=== PATIENT | female | born 1980 | race Caucasian/White ===

== ENCOUNTER 2016-09-24 12:25 | Emergency (ER) | payer MEDICAID ==
[2016-09-24 12:58] LABS: BASOPHILS 0.3 % (0.0-2.0); EOSINOPHILS 0.1 % (0.0-6.0); LYMPHOCYTES# 1.1 X 10^3uL (0.8-3.8); MONOCYTES# 0.2 X 10^3uL (0.2-1.0)
[2016-09-24] MEDS ORDERED: ONDANSETRON HCL 4 MG/2 ML VIAL ONE (12:58)
[2016-09-24 13:10] LABS: HEMATOCRIT 49.3 % (36.0-48.0); HEMOGLOBIN 17.4 g/dL (12.0-16.0); LYMPHOCYTES 11.6 % (20.0-40.0); MEAN CORPUS. HGB CONCENTRATION 35.2 g/dL (32.0-36.0); MEAN CORPUSCULAR HEMOGLOBIN 33.1 pg (29.0-35.0); MEAN PLATELET VOLUME 7.8 fL (7.4-10.4); MONOCYTES 2.2 % (2.0-10.0); NEUTROPHILS 85.8 % (54.0-75.0); NEUTROPHILS# 8.2 X 10^3uL (2.6-6.7); PLATELET COUNT 272 X 10^3uL (130-440); RED BLOOD COUNT 5.25 X 10^6uL (4.20-6.10); RED CELL DISTRIBUTION WIDTH 11.8 % (11.5-14.5); WHITE BLOOD COUNT 9.5 X 10^3uL (3.9-10.7)
[2016-09-24 13:14] LABS: ALKALINE PHOSPHATASE 83 U/L (38-126); ALT 51 U/L (9-52); AST 37 U/L (14-36); BILIRUBIN, DIRECT 0.3 mg/dL (0.0-0.4); BILIRUBIN, TOTAL 1.8 mg/dL (0.2-1.3); BLOOD UREA NITROGEN 14 mg/dL (7-17); CHLORIDE 102 mmol/L (98-107); EST GLOMERULAR FILTRATION RATE > 60 mL/min; GLUCOSE 132 mg/dL (70-100); LIPASE 76 U/L (23-300); POTASSIUM 3.7 mmol/L (3.5-5.1); SODIUM 146 mmol/L (137-145)
--- NOTE | 2016-09-24 14:42 | ER NURSING DOCUMENTATION ---
Nurse's Notes [facility] Name:Alaina Lawson Age:36 yrs Sex:Female :1980 Arrival Date:09/24/2016 Time:12:25 Bed4 Private MD:Brian Segura Diagnosis:Vomiting - Dehydration;Diarrhea;Abdominal Pain, Epigastric Presentation: 09/24 12:29 Presenting complaint: Patient states: Vomiting and nausea x 1.5 days. Transition of cb care: Home. Notified ED Physician of Dr. Aguilar notified. 12:29 Method Of Arrival: Private Vehicle cb 12:29 Acuity: TEVIN 3 cb Triage Assessment: 12:34 General: Appears distressed, well groomed, Behavior is cooperative. Pain: Complains of cb pain in xyphoid area Pain radiates to right upper quadrant and left upper quadrant Pain currently is 7 out of 10 on a pain scale. Quality of pain is described as sharp, Pain began 2-3 days ago. EENT: Denies nasal congestion, nasal discharge. Neuro: Level of Consciousness is awake, alert, Oriented to person, place, time, event. Cardiovascular: Pulses are 2+ in right radial artery. Respiratory: Airway is patent Trachea midline Respiratory effort is even, unlabored, Respiratory pattern is regular, symmetrical. GI: Reports intolerance of fluids, intolerance of food, x 1.5 days. : Reports urine brown color. Derm: Denies rashes, bites, non healing wounds. Musculoskeletal: Reports chronic back pain. Historical: - Allergies: No known drug Allergies; - Home Meds: 1. Promethazine Oral 2. Zofran Oral 3. morphine 30 mg oral CERP 1 cap 2 times per day 4. [place] 10-325 mg oral tab 1 tab BID as needed for pain for Pain 5. Valium 10 mg oral tab 1 tab one a day for Muscle Spasm 6. trazodone 100 mg oral tab hs - PMHx: chronic pain of back ; - PSHx: Appendectomy; c section x 2 ; TUBAL LIGATION; bunionectomey ; - Tetanus: < 10 years. - Ebola Screening: : Patient negative for fever greater than or equal to 101.5 degrees Fahrenheit, and additional compatible Ebola Virus Disease symptoms. Patient denies exposure to infectious person. Patient denies travel to an Ebola-affected area in the 21 days before illness onset. No symptoms or risks identified at this time. . - Immunization history: Flu Vaccine None. - Social history: Smoking status: Patient states former smoker of tobacco. Screenin:46 Infectious Disease Risk None. Abuse screen: Denies threats or abuse. Denies injuries cb from another. Nutritional screening: No deficits noted. Assessment: 12:45 See Triage Assessment done by same RN. cb Vital Signs: 12:32 BP 139 / 85; Pulse 68; Resp 22; Temp 98.1; Pulse Ox 94% on R/A; Weight 63.5 kg; Height cb 5 ft. 7 in. (170.18 cm); Pain 7/10; 13:00 BP 95 / 63; Pulse 71; Resp 14; Pulse Ox 94% on R/A; lp 14:00 BP 108 / 67; Pulse 83; Resp 14; Pulse Ox 92% on R/A; lp 14:31 BP 102 / 64; Pulse 85; Resp 14; Pulse Ox 94% on R/A; lp 12:32 Body Mass Index 21.93 (63.50 kg, 170.18 cm) cb ED Course: 12:26 Patient arrived in ED. ma1 12:26 Brian Segura is Private Physician. ma1 12:31 Triage completed. cb 12:34 Shreyas Aguilar MD is Attending Physician. tl1 12:42 Maria Dolores Escudero, XUAN is Primary Nurse. lp 12:45 Notified ED Physician of patient's arrival and chief complaint. Dr. Aguilar notified. cb 12:46 Valuables Remains with patient Patient has correct armband on for positive cb identification. Placed in gown. Bed in low position. Call light in reach. Adult w/ patient. Cardiac Monitoring On for Nurse Monitoring only. Pulse Ox - RN Monitoring Only. 12:47 Labs drawn. (by ED staff). Sent per order to lab. Inserted peripheral IV: 20 gauge in cb left antecubital area and blood collected. 14:23 Brian Segura is Referral Physician. tl1 Administered Medications: 12:50 Drug: NS 0.9% 1000 ml; Route: IV; Rate: bolus; Site: left antecubital; lp 13:26 Follow up: Response: No adverse reaction; No change in condition; IV Status: Completed lp infusion; IV Intake: 1000ml 12:50 Drug: Zofran 4 mg; Route: IVP; Infused Over: 2 mins; Site: left antecubital; lp 13:00 Follow up: Response: Nausea unchanged lp 12:51 Drug: HYDROmorphone 1 mg; Route: IVP; Site: left antecubital; lp 13:27 Follow up: Response: Pain is decreased lp 13:20 Drug: Promethazine 12.5 mg; Route: IVP; Site: left antecubital; lp 13:41 Follow up: Response: Nausea is decreased lp 13:25 Drug: NS 0.9% 1000 ml; Route: IV; Rate: bolus; Site: left antecubital; lp 13:59 Follow up: Response: No adverse reaction; No change in condition; IV Status: Completed lp infusion; IV Intake: 1000ml 13:59 Drug: HYDROmorphone 1 mg; Route: IVP; Site: left antecubital; lp 14:32 Follow up: Response: Pain is decreased lp 13:59 Drug: Promethazine 12.5 mg; Route: IVP; Site: left antecubital; lp 14:32 Follow up: Response: Nausea is decreased lp 14:00 Drug: NS 0.9% 1000 ml; Route: IV; Rate: bolus; Site: left antecubital; lp 14:31 Follow up: Response: No adverse reaction; IV Status: Completed infusion; IV Intake: lp 1000ml Intake: 13:26 IV: 1000ml; Total: 1000ml. lp 13:59 IV: 1000ml; Total: 2000ml. lp 14:31 IV: 1000ml; Total: 3000ml. lp Outcome: 14:24 Discharge ordered by . tl1 14:41 Discharged to home ambulatory. lp 14:41 Condition: stable 14:41 Instructed on discharge instructions, follow up and referral plans. medication usage. 14:42 Patient left the ED. lp 09/25 09:42 Discharge F/U Call: Unable to reach: no answer lp Signatures: Dahiana El RN RN cb Pavlish, Lena, RN RN lp Leigh, Tom, MD MD tl1 Briseida Damon [facility]
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
== END 2016-09-24 14:42 | disposition home or self-care (01) ==
LOC: ER 12:25
DX: E86.0 Dehydration (principal); R11.2 Nausea with vomiting, unspecified; R10.13 Epigastric pain; F12.90 Cannabis use, unspecified, uncomplicated; G89.29 Other chronic pain; Z79.899 Other long term (current) drug therapy; Z79.891 Long term (current) use of opiate analgesic
CPT/HCPCS: 80048; 80076; 83690; 85025; 96361; 96374; 96375; 96376; 99284; J1170; J2405; J2550